=== PATIENT | male | born 1995 | race African-American/Black ===

== ENCOUNTER 2022-10-10 12:10 | Inpatient (IN) | payer MEDICAID, OTHER ==
[2022-10-10] VITALS (27 sets, daily range): BP systolic 103–139; BP diastolic 55–89; PULSE 53–72; RESP 9–19; TEMP 97.7–97.8
[~2022-10-10] VITALS: Ht 170.2 cm; Wt 69.4 kg
[2022-10-10] MEDS ORDERED: LIDOCAINE HCL/PF 1% 10 MG/ML 5ML VIAL INFIL ONE (12:30)
[2022-10-10] MEDS ORDERED: IBUPROFEN 600MG TABLET PO ONE ×2 (12:30)
[2022-10-10] MEDS ORDERED: ONDANSETRON HCL 4MG/2ML INJ IV STA (13:50)
[2022-10-10] MEDS ORDERED: MORPHINE SULFATE 4 MG/ML CPJ (NOT FOR IM USE) IV STA (13:50)
[2022-10-10] MEDS ORDERED: SODIUM CHLORIDE 0.9% 1,000 ML IV ONE (14:00)
[2022-10-10] MEDS ORDERED: LEVETIRACETAM 1000MG PREMIX 100 ML IV ONE (14:15)
[2022-10-10 15:11] LABS: BASOPHILS % 0.2 % (0.0-2.0); HEMOGLOBIN. 14.2 g/dL (14.0-18.0); LYMPHOCYTES % 12.4 % (20.0-50.0); MEAN CORPUSCULAR HEMOGLOBIN 27.5 pg (28.0-32.0); MEAN CORPUSCULAR VOLUME 83.6 fL (80.0-94.0); MEAN PLATELET VOLUME 7.3 fl (7.4-10.4); MONOCYTES % 5.2 % (2.0-8.0); NEUTROPHILS % 82.2 % (40.0-76.0); PLATELET 222 x1000/uL (130-400); RED BLOOD CELL COUNT 5.15 mill/uL (4.7-6.1); RED CELL DISTRIBUTION WIDTH 13.5 % (11.6-14.6)
[2022-10-10 15:21] LABS: INR 1.2
[2022-10-10 15:25] LABS: CHLORIDE 107 mEq/L (98-107)
[2022-10-10 15:33] LABS: ETHANOL BLOOD < 10 mg/dL (-10)
[2022-10-10] MEDS ORDERED: NALOXONE HCL 0.4MG/ML VIAL IV PRN (17:30)
[2022-10-10] MEDS ORDERED: DEXT 5%/LACTATED RINGERS 1,000 ML IV SCH (17:30)
[2022-10-10] MEDS: MORPHINE SULFATE 2 MG/ML CPJ (NOT FOR IM USE) IV PRN ×2 (17:33→21:33)
[2022-10-10] MEDS: LEVETIRACETAM 500MG PREMIX 100 ML IV SCH (20:51)
[2022-10-11] VITALS (24 sets, daily range): BP systolic 92–148; BP diastolic 52–91; PULSE 53–98; RESP 5–19; TEMP 97.5–98.4; O2SAT 98
[2022-10-11] MEDS: MORPHINE SULFATE 2 MG/ML CPJ (NOT FOR IM USE) IV PRN ×2 (01:34→06:09)
[2022-10-11] MEDS ORDERED: ONDANSETRON HCL 4MG/2ML INJ IV PRN (07:15)
[2022-10-11] MEDS: LEVETIRACETAM 500MG PREMIX 100 ML IV SCH (08:25)
[2022-10-11] MEDS ORDERED: KEPP500 MT (10:52)
[2022-10-11 11:19] LABS: *AMPHETAMINES SCREEN URINE NEGATIVE (NEGATIVE); *BARBITURATES SCREEN URINE NEGATIVE (NEGATIVE); *BENZODIAZEPINES SCREEN URINE NEGATIVE (NEGATIVE); *COCAINE SCREEN URINE NEGATIVE (NEGATIVE); CANNABINOID URINE SCREEN PRESUMTIVE POSITIVE (NEGATIVE); METHADONE URINE SCREEN NEGATIVE (NEGATIVE); OPIATES URINE SCREEN PRESUMTIVE POSITIVE (NEGATIVE); PHENCYCLIDINE URINE SCREEN NEGATIVE (NEGATIVE)
== END 2022-10-11 13:36 | disposition home or self-care (01) | DRG 55 ==
LOC: ER 12:40 → MICUSO 14:03
PROVIDERS: ADMIT Internal Medicine; ATTEND Internal Medicine
PROC: 0CQ0XZZ Repair Upper Lip, External Approach (ICD-10-PCS; principal; 2022-10-10)
DX: S06.6X0A Traumatic subarachnoid hemorrhage without loss of consciousness, initial encounter (principal); E86.0 Dehydration; S01.511A Laceration without foreign body of lip, initial encounter; Y08.89XA Assault by other specified means, initial encounter; Y93.89 Activity, other specified; Y92.89 Other specified places as the place of occurrence of the external cause; Y99.8 Other external cause status
CPT/HCPCS: 36415; 80053; 80305; 80320; 85025; 99291; J1953; J2270; J2405; J7030; J7121; G0480

== ENCOUNTER 2023-03-14 17:48 | Emergency (ER) | payer OTHER ==
[~2023-03-14] VITALS: Ht 170.2 cm; Wt 66.7 kg
[~2023-03-14 17:48] MED LIST: KEPP500 MT
[2023-03-14 17:56] VITALS: BP 91/65; PULSE 75; RESP 16; TEMP 98.2; O2SAT 100
[2023-03-14] MEDS ORDERED: AMOXICILLIN/POTASSIUM CLAVULANATE 875/125MG TAB PO NR (18:15)
[2023-03-14] MEDS ORDERED: AMOXICILLIN/POTASSIUM CLAVULANATE 875/125MG TAB PO ONE (18:15)
[2023-03-14] MEDS ORDERED: BACITRACIN ZINC OINT UDPKT TOP ONE (18:15)
[2023-03-14] MEDS ORDERED: TETANUS, DIPHTHERIA, PERTUSSIS VAC/PF 0.5ML (>10YR OLD) IM ONE ×2 (18:15→21:30)
[2023-03-14] MEDS ORDERED: BACITRACIN ZINC OINT UDPKT TOP NR (18:15)
[2023-03-14] MEDS ORDERED: AMOX1TAB16 MT (20:06)
[2023-03-14] MEDS ORDERED: IBUP-2028 MT (20:06)
[2023-03-14] MEDS ORDERED: BO1 TP (20:07)
== END 2023-03-14 23:11 | disposition home or self-care (01) ==
LOC: ER 17:48
DX: S81.851A Open bite, right lower leg, initial encounter (principal); W54.0XXA Bitten by dog, initial encounter; Y93.89 Activity, other specified; Y92.89 Other specified places as the place of occurrence of the external cause; Y99.8 Other external cause status
CPT/HCPCS: 73590; 90471; 90715; 99283